=== PATIENT | female | born 1975 | race Caucasian/White ===

== ENCOUNTER 2021-08-26 13:32 | Emergency (ER) | payer OTHER, SELFPAY ==
[2021-08-26 13:50] VITALS: BP 182/102; PULSE 71; RESP 18; TEMP 35.9; O2SAT 98; BMI 32.5
--- NOTE | 2021-08-26 16:50 | ED.GENADULT ---
HPI - General Adult General Chief complaint: General Medical Stated complaint: hbp Time Seen by Provider: 08/26/21 16:50 Source: patient Mode of arrival: ambulatory Limitations: no limitations History of Present Illness HPI narrative: Patient with history of hypertension on lisinopril 20 mg daily complaining of mild headache had some fluttering of eyelids yesterday lasted for few seconds no loss of consciousness no body seizures. patient with history of hypertension for last 1 year used to be on 10 mg of lisinopril increased to 20 mg of lisinopril last month as the blood pressure was on the higher side blood pressure still running high on arrival patient's blood pressure was 182/102 patient under higher stress lately plan to see her PCP next week Related Data Previous Rx's Medication Instructions Recorded amlodipine 5 mg tablet 5 mg PO DAILY #30 tab 08/26/21 hydrochlorothiazide 25 mg tablet 25 mg PO QAM #30 tab 08/26/21 Allergies Allergy/AdvReac Type Severity Reaction Status Date / Time No Known Allergies Allergy Verified 08/26/21 13:50 Review of Systems Review of Systems: Yes all other systems are reviewed and are negative [facility] Social History Social History Advance Directives: No Advance Directives Information Provided: Yes Patient : No Physical Exam Vital Signs: Vital Signs: Last Vital Signs Temp 96.7 F L 08/26/21 13:50 Pulse 71 08/26/21 13:50 Resp 18 08/26/21 13:50 BP 182/102 H 08/26/21 13:50 Pulse Ox 98 08/26/21 13:50 Body Mass Index 32.5 Appearance: Alert. Oriented X3. No acute distress. Eyes: PERRLA, No Nystagmus ENT: Pharynx normal. Oral Mucosa moist Neck: Normal inspection. Neck supple. CVS: Normal heart rate and rhythm. Pulses normal. Respiratory: No respiratory distress. Equal air entry bilateral, no wheezing/rales/rhonchi Abdomen: Soft and nontender. Bowel sounds are present, no mass palpable, no CVA tenderness Skin: Skin warm and dry. Normal skin color. Normal skin turgor. Extremities: No lower extremity edema. No calf tenderness Neuro: Oriented X 3. No motor deficit. No sensory deficit.No cerebellar signs , cranial nerves II-XII intact Medical Decision Making MDM Narrative Medical decision making narrative: Patient with chronic primary hypertension uncontrolled for last 1 month will add amlodipine and hydrochlorothiazide to control blood pressure advised to follow with PCP not sure what cause of fluttering or spasm of the eyelids possible partial seizure patient advised to follow with PCP/neurologist recurrence of similar episodes in future Discharge Plan Discharge Clinical Impression: Hypertension Qualifiers: Hypertension type: primary hypertension Qualified Code(s): I10 - Essential (primary) hypertension Patient Disposition: Home, Self-Care Instructions: Hypertension (ED) Additional Instructions: Decrease salt intake Continue taking your lisinopril 20 mg daily Will start you on hydrochlorothiazide 25 mg daily in the morning along with amlodipine 5 mg daily in the morning Check blood pressure before you take the medication and before go to bed Your blood pressure should be less than 140/90 keep the records of blood pressure reading and follow-up with your PCP as scheduled Prescriptions: New hydrochlorothiazide 25 mg tablet 25 mg PO QAM Qty: 30 RF: 0 amlodipine 5 mg tablet 5 mg PO DAILY Qty: 30 RF: 0
[2021-08-26 17:27] VITALS: BP 168/102; PULSE 67; RESP 18; O2SAT 98
[2021-08-26] MEDS: amLODIPine Besylate 5 MG TABLET PO (17:28)
--- NOTE | 2021-08-26 17:29 | PC.NURSE ---
Per Anwer no ekg needed
== END 2021-08-26 16:55 | disposition home or self-care (01) ==
PROVIDERS: Emergency Provider Internal Medicine; PCP Internal Medicine
DX: I10 Essential (primary) hypertension (principal); R51.9 Headache, unspecified; H52.533 Spasm of accommodation, bilateral; Z79.899 Other long term (current) drug therapy
CPT/HCPCS: 99283

== ENCOUNTER 2021-10-12 14:25 | Outpatient (REF) | payer OTHER, SELFPAY ==
[2021-10-12 15:43] LABS: COVID-19 Test Negative (Negative); IDNOW Serial# 16C4AD1C
== END 2021-10-12 14:26 | disposition home or self-care (01) ==
LOC: HO.LAB 14:25
PROVIDERS: Visit Provider Internal Medicine
DX: Z20.822 Contact with and (suspected) exposure to COVID-19 (principal)
CPT/HCPCS: 87635; C9803

== ENCOUNTER 2021-10-19 13:04 | Outpatient (REF) | payer OTHER, SELFPAY ==
[2021-10-19 13:36] LABS: COVID-19 Test Negative (Negative); IDNOW Serial# 16C4AD1C
== END 2021-10-19 13:05 | disposition home or self-care (01) ==
LOC: HO.LAB 13:04
PROVIDERS: Visit Provider Internal Medicine
DX: Z20.822 Contact with and (suspected) exposure to COVID-19 (principal)
CPT/HCPCS: 87635; C9803

== ENCOUNTER 2022-07-06 12:48 | Emergency (ER) | payer OTHER, SELFPAY ==
--- NOTE | ~2022-07-06 | CT_ITS ---
EXAMINATION: CT HEAD WITHOUT CONTRAST CLINICAL INFORMATION: Headache with new onset shaking COMPARISON: None TECHNIQUE: Imaging was performed from the skull base to vertex without intravenous administration of contrast. This CT examination was performed using dose optimization techniques as appropriate, variously including the following: *Automated exposure control *Adjustment of mA and/or kV according to patient size (this includes techniques or standardized protocols for targeted exams where dose is matched to indication/reason for exam; i.e. extremities or head) *Use of iterative reconstruction technique Total exam dose length product: 603 mGy-cm FINDINGS: No intra or extra-axial fluid collection, hemorrhage, or mass. No ventriculomegaly. No midline shift or herniation. Basal cisterns are patent. Wylie-white matter differentiation is maintained. No territorial encephalomalacia. No significant volume loss. There is no abnormal attenuation within the brain parenchyma. No calvarial fracture or soft tissue abnormality. The mastoid air cells and visualized portions of the paranasal sinuses are well aerated. CT/CT head/brain wo IV con IMPRESSION: 1. No acute intracranial pathology.
[2022-07-06 12:52] VITALS: BP 176/96; PULSE 63; RESP 20; TEMP 37.1; O2SAT 94; BMI 33.1
--- NOTE | 2022-07-06 13:08 | ED.GENADULT ---
HPI - General Adult General Chief complaint: General Medical Stated complaint: ? Stroke Symptoms Time Seen by Provider: 07/06/22 13:07 Source: patient Mode of arrival: ambulatory Limitations: no limitations History of Present Illness HPI narrative: Patient is a 47 year old female presenting to the emergency department today with right hand shaking. Patient states that last night while she was driving she took a wrong turn and got very nervous about and her right hand started shaking. Patient states that it has been shaking on and off since then. Patient states that if she really thinks about it, she can get it to stop. Patient denies any numbness, weakness, dizziness, lightheadedness, abdominal pain, nausea, vomiting, fever, chills, blurry vision, double vision, loss of vision, chest pain, difficulty breathing, shortness of breath, back pain, night sweats, pain with urination, increased urinary frequency, increased urinary urgency, blood in her urine or stool, syncope or a near syncopal episode, recent trauma or falls, bowel incontinence, bladder incontinence, bowel retention, bladder retention, or any other complaints at this time. Onset (ago): hour(s) Location: right and upper extremity Radiation: non-radiation Severity: mild Severity scale (1-10): 2 Relieving factors: other (concentration) Exacerbating factors: none Associated symptoms: denies other symptoms Treatments prior to arrival: none Related Data Previous Rx's Medication Instructions Recorded amlodipine 5 mg tablet 5 mg PO DAILY #30 tabs 08/26/21 hydrochlorothiazide 25 mg tablet 25 mg PO QAM #30 tabs 08/26/21 Allergies Allergy/AdvReac Type Severity Reaction Status Date / Time No Known Allergies Allergy Verified 08/26/21 13:50 Review of Systems Constitutional: Constitutional: Reports no additional constitutional complaints, Denies chills, Denies fever(s) and Denies night sweats Eyes: Eyes: Reports no additional eye complaints, Denies blurry vision, Denies change in vision, Denies diplopia, Denies eye discharge, Denies loss of vision and Denies eye pain ENT: Denies dizziness Cardiovascular: Cardiovascular: Reports no additional cardiovascular complaints, Denies chest pain, Denies lightheadedness, Denies Loss of Consciousness and Denies dyspnea Respiratory: Respiratory: Reports no additional respiratory complaints and Denies dyspnea Gastrointestinal: Gastrointestinal: Reports no additional gastrointestinal complaints, Denies abdominal pain, Denies melena, Denies hematochezia, Denies change in bowel habits and Denies change in stool character Genitourinary: Genitourinary: Denies hematuria, Denies urinary frequency, Denies dysuria, Denies urinary incontinence, Denies urinary hesitancy and Denies urinary urgency Musculoskeletal: Musculoskeletal: Reports no additional musculoskeletal complaints, Denies numbness and Denies tingling Comments: right hand tremor Neurologic: Denies dizziness, Denies loss of vision, Denies numbness and Denies tingling Psychiatric: Psychiatric: Reports no additional psychiatric complaints Endocrine: Endocrine: Reports no additional endocrine complaints Hematologic/Lymphatic: Hematologic/Lymphatic: Reports no additional hematologic/lymphatic complaints Allergic/Immunologic: Allergic/Immunologic: Reports no additional allergic/immunologic complaints [facility] [place] Past Medical History Attestation statement: The following information was validated with the patient. Source: old records reviewed Social History Social History Advance Directives: No Advance Directives Information Provided: Yes Physical Exam ED Vital Signs: Vital Signs - 24 hr 07/06/22 12:52 Temperature 98.7 F Pulse Rate 63 Respiratory Rate 20 Blood Pressure 176/96 H Pulse Oximetry 94 Oxygen Delivery Method Room Air BMI result Body Mass Index 33.1 Const General: cooperative, no acute distress, alert and awake Nutritional Appearance: well nourished Orientation/consciousness: patient oriented x3 Limitations: no limitations HENMT Head: Yes normal to inspection and Yes atraumatic Ears: hearing grossly normal bilaterally and external ears normal General nose exam: Normal external nose present, no nasal discharge noted and no epistaxis Face and sinus: Yes normal facial exam, No abrasion and No laceration Mouth: Normal oral and palatal mucosa present, no drooling and no muffled voice Eyes General: appearance normal, both eyes and all related structures Periorbital: periorbital findings normal Eyelids: Yes eyelids normal Conjunctivae: conjunctivae normal Pupils: Equal, round and reactive pupils present EOM: EOMs intact bilaterally Neck Neck: Yes normal visual inspection, Yes full ROM and Yes no lymphadenopathy Chest Chest palpation & inspection: normal inspection of the chest Resp Effort & Inspection: normal respiratory effort and able to speak in complete sentences Auscultation: clear to auscultation bilaterally Cardio Rate: regular rate Rhythm: regular rhythm GI Inspection: Yes normal to inspection Neuro General: patient oriented x3 and moves all extremities Cranial nerves: Yes Equal, round and reactive pupils present Cognition (Neuro): normal cognition Motor exam (neuro): 5/5 motor strength present throughout Sensory Exam: Normal double simultaneous stimulation for sensation Coordination: [id number] test normal Extrem General: Yes normal to inspection, Yes full ROM and Yes capillary refill normal Psych Appearance: grossly normal Mental Status: mental status grossly normal Affect: normal affect Attitude: cooperative Thought process: Normal thought process present Thought content: Normal thought content present Insight: Good insight present (Psych) NIH Stroke Scale Internal: Initial- Upon Arrival Time: 13:08 Level of Consciousness: Alert Level of Consciousness Questions: Answers both questions correctly Level of Consciousness Commands: Performs both tasks correctly Best Gaze: Normal Visual: No visual loss Facial Palsy: Normal Motor Arm (Right): No drift Motor Arm (Left): No drift Motor Leg (Right): No drift Motor Leg (Left): No drift Limb Ataxia: Absent Sensory: Normal Best Language: No aphasia Dysarthia: Normal Extinction and Inattention: No abnormality Score: 0 Medical Decision Making MDM Narrative Medical decision making narrative: Patient is a 47 year old female presenting to the emergency department today with a resolved right hand tremor. Patient's physical exam was unremarkable, including no active tremor. Patient's blood work was unremarkable. Patient's head CT showed no acute process. Patient's clinical presentation at this time is most consistent with anxiety. Patient's presentation is not consistent with a stroke, benign tremor, or an essential tremor. I explained my physical exam findings as well as all test results to the patient. I answered all questions asked by the patient. I stressed the importance of the patient taking her medication as prescribed. I stressed the importance of the patient following up with her primary care provider. I stressed the importance of the patient returning to the emergency department immediately if her symptoms were to worsen or if she were to develop any dizziness, shortness of breath, difficulty breathing, chest pain, blurry vision, loss of vision, nausea, vomiting, abdominal pain, fever, chills, back pain, or any other complaints. Patient verbalized agreement and understanding with this treatment plan and discharge. Medical Records Medical records reviewed: Yes I reviewed the patient's medical records. Lab Data Lab results reviewed: Yes I reviewed the patient's lab results. Result diagrams: 07/06/22 13:51 07/06/22 13:51 Labs: Lab Results 07/06/22 07/06/22 Range/Units 13:51 13:51 WBC 8.0 (4.8-10.8) X10*3/uL RBC 4.11 L (4.20-5.50) X10*6/uL Hgb 12.5 (12.0-16.0) g/dl Hct 37.7 (37.0-47.0) % MCV 91.7 (80.0-98.0) fL MCH 30.4 (27.0-33.0) pg MCHC 33.2 (31.0-35.0) g/dl RDW 12.8 (11.0-16.0) % Plt Count 331 (160-400) X10*3/uL MPV 8.6 L (9.4-12.3) fL Immature Gran % (Auto) 0.1 (0.0-0.4) % Neut % (Auto) 52.5 (45-73) % Lymph % (Auto) 33.1 (20-40) % [place] % (Auto) 8.1 (2-11) % Eos % (Auto) 5.4 H (0-4) % Baso % (Auto) 0.8 (0-2) % Lymph # (Auto) 2.6 (1.2-4.9) X10*3/uL [place] # (Auto) 0.7 (0.1-1.2) X10*3/uL Eos # (Auto) 0.4 (0.0-0.4) X10*3/uL Baso # (Auto) 0.1 (0.0-0.2) X10*3/uL Abs Immat Gran (auto) 0.01 (0.00-0.03) X10*3/uL Absolute Neuts (auto) 4.2 (2.0-8.3) x10*3/uL Absolute Nucleated RBC 0.000 (0.0-0.012) X10*3/uL Nucleated RBC % (auto) 0.0 (0.0-0.2) /100WBC Sodium 140 (135-145) mmol/L Potassium 4.2 (3.3-5.1) mmol/L Chloride 105 (96-108) mmol/L Carbon Dioxide 26 (22-29) mmol/L Anion Gap 13 (12-20) BUN 16 (9-16) mg/dL Creatinine 0.80 (0.5-1.4) mg/dL Estim Creat Clear Calc 94.4 Estimated GFR > 60 Random Glucose 93 (60-115) mg/dL Calcium 9.2 (8.4-10.2) mg/dL Magnesium 2.2 (1.6-2.6) mg/dL Total Bilirubin 0.4 (0.0-1.0) mg/dL AST 16 (5-31) U/L ALT 15 (0-31) U/L Alkaline Phosphatase 96 (39-117) U/L Total Protein 7.3 (6.5-8.0) g/dL Albumin 4.2 (3.5-5.0) g/dL Imaging Data CT scan - head: Attestation: I personally reviewed and interpreted this imaging study as follows: My impression: No acute process. Radiologist's impression: EXAMINATION: CT HEAD WITHOUT CONTRAST CLINICAL INFORMATION: Headache with new onset shaking? COMPARISON: None TECHNIQUE: Imaging was performed from the skull base to vertex without intravenous administration of contrast. This CT examination was performed using dose optimization techniques as appropriate, variously including the following: *Automated exposure control *Adjustment of mA and/or kV according to patient size (this includes techniques or standardized protocols for targeted exams where dose is matched to indication/reason for exam; i.e. extremities or head) *Use of iterative reconstruction technique Total exam dose length product: 603 mGy-cm FINDINGS: No intra or extra-axial fluid collection, hemorrhage, or mass. No ventriculomegaly. No midline shift or herniation. Basal cisterns are patent. Wylie-white matter differentiation is maintained. No territorial encephalomalacia. ?No significant volume loss. There is no abnormal attenuation within the brain parenchyma. No calvarial fracture or soft tissue abnormality. ?The mastoid air cells and visualized portions of the paranasal sinuses are well aerated. CT/CT head/brain wo IV con IMPRESSION: 1. No acute intracranial pathology. Dictated By: Rio Nina Signed By: Electronically signed by Rio Nina 07/06/22 1262 Discharge Plan Discharge Clinical Impression: Anxiety Patient Disposition: Home, Self-Care Instructions: Anxiety (ED) Additional Instructions: Follow up with your primary care provider and a neurologist. Return to the emergency department immediately if your symptoms worsen or if you develop any dizziness, shortness of breath, difficulty breathing, chest pain, blurry vision, loss of vision, nausea, vomiting, abdominal pain, fever, chills, back pain, or any other complaints. Prescriptions: No Action hydrochlorothiazide 25 mg tablet 25 mg PO QAM Qty: 30 0RF amlodipine 5 mg tablet 5 mg PO DAILY Qty: 30 0RF Referrals: [facility] [place] Neuro/Sleep [Provider Group] Andreea Hernandez MD [Primary Care Provider] - Print Language: Tuvaluan
[2022-07-06 13:56] LABS: MANUAL DIFF FLAG NO
[2022-07-06 13:57] LABS: Basophils Absolute Auto 0.1 X10*3/uL (0.0-0.2); Basophils Percent Auto 0.8 % (0-2); Eosinophils Absolute Auto 0.4 X10*3/uL (0.0-0.4); Eosinophils Percent Auto 5.4 % (0-4); Hematocrit 37.7 % (37.0-47.0); Hemoglobin 12.5 g/dl (12.0-16.0); Imm Gran Abs Auto 0.01 X10*3/uL (0.00-0.03); Imm Gran Pct Auto 0.1 % (0.0-0.4); Lymphocytes Absolute Auto 2.6 X10*3/uL (1.2-4.9); Lymphocytes Percent Auto 33.1 % (20-40); Mean Corpuscular HGB Conc 33.2 g/dl (31.0-35.0); Mean Corpuscular Hemoglobin 30.4 pg (27.0-33.0); Mean Corpuscular Volume 91.7 fL (80.0-98.0); Mean Platelet Volume 8.6 fL (9.4-12.3); Monocytes Absolute Auto 0.7 X10*3/uL (0.1-1.2); Monocytes Percent Auto 8.1 % (2-11); Neutrophils Absolute Auto 4.2 x10*3/uL (2.0-8.3); Neutrophils Percent Auto 52.5 % (45-73); Platelet Count 331 X10*3/uL (160-400); Red Blood Count 4.11 X10*6/uL (4.20-5.50); Red Cell Distribution Width 12.8 % (11.0-16.0)
[2022-07-06 14:15] LABS: Alanine Aminotransferase 15 U/L (0-31); Albumin Level 4.2 g/dL (3.5-5.0); Alkaline Phosphatase 96 U/L (39-117); Anion Gap 13 (12-20); Aspartate Amino Transferase 16 U/L (5-31); Bilirubin Total 0.4 mg/dL (0.0-1.0); Blood Urea Nitrogen 16 mg/dL (9-16); Calcium 9.2 mg/dL (8.4-10.2); Carbon Dioxide 26 mmol/L (22-29); Chloride 105 mmol/L (96-108); Creatinine Clr Calc Pharmacy 94.4; Estimated Glomerular Filt Rate > 60; Glucose Random 93 mg/dL (60-115); Magnesium 2.2 mg/dL (1.6-2.6); Potassium 4.2 mmol/L (3.3-5.1); Sodium 140 mmol/L (135-145); Total Protein 7.3 g/dL (6.5-8.0)
== END 2022-07-06 15:42 | disposition home or self-care (01) ==
PROVIDERS: Physician Assistant Medical; Emergency Provider Emergency Medicine Emergency Medical Services; PCP Internal Medicine
DX: F41.9 Anxiety disorder, unspecified (principal); R25.1 Tremor, unspecified
CPT/HCPCS: 36415; 70450; 80053; 83735; 85025; 99282; 99284

== ENCOUNTER 2023-02-10 05:50 | Emergency (ER) | payer OTHER, SELFPAY ==
--- NOTE | ~2023-02-10 | US_ITS ---
EXAMINATION: US ABDOMEN COMPLETE CLINICAL INFORMATION: Abdominal pain. COMPARISON: Previous CT of the abdomen and pelvis December 2018 TECHNIQUE: Real-time imaging of the abdominal viscera. FINDINGS: PANCREAS: Normal. ABDOMINAL AORTA: The proximal, mid, and distal segments are normal in caliber. INFERIOR VENA CAVA: Visualized portions are normal. LIVER: Liver echotexture may be slightly increased. The liver is normal in size and contour. No focal hepatic lesion. There is no intrahepatic biliary duct dilatation seen. GALLBLADDER: Normal. The gallbladder is physiologically distended without evidence of stones, sludge, polyps, wall thickening or pericholecystic fluid. COMMON BILE DUCT: Normal in caliber measuring 0.3 cm in diameter. RIGHT KIDNEY: Normal. No hydronephrosis. No renal calculi or focal parenchymal lesions. The kidney measures 12.6 cm in maximum dimension. LEFT KIDNEY: Normal. No hydronephrosis. No renal calculi or focal parenchymal lesions. The kidney measures 12 cm in maximum dimension. SPLEEN: Normal. The spleen measures 9 cm in maximum dimension. FREE FLUID: None. US/US abdomen complete IMPRESSION: Slightly echogenic liver probably representing mild fatty infiltration. Normal-appearing gallbladder.
--- NOTE | ~2023-02-10 | XR_ITS ---
EXAMINATION: XR RIBS, RIGHT CLINICAL INFORMATION: Right lower rib pain COMPARISON: Previous chest x-ray from 2014 TECHNIQUE: 3 views of the right ribs and one view of the chest were obtained. FINDINGS: Lungs are clear. No consolidation, pneumothorax, or pleural effusion. The cardiomediastinal silhouette and pulmonary vasculature are normal. Degenerative changes of the spine. Ribs are intact. No fractures are identified. XR/XR ribs RT min 3V w CXR1V IMPRESSION: No evidence for acute disease in the chest or rib fracture.
[2023-02-10 06:00] VITALS: BP 156/91; PULSE 69; RESP 16; TEMP 36.3; O2SAT 98; BMI 33.3
--- OUTSIDE RECORDS SUMMARY | 2023-02-10 06:34 | XMS_ITS | Continuity of Care Document ---
Author Name Unknown Organization [facility] ter Address [address] [place] [id number] Care Team Providers Care Certified Family Mediator Name Role Phone Seble Yoon Primary Care Physician [phone] Encounter [facility] [place] Date(s): 07/26/22 - 07/30/[address] [address]- Encounter Diagnosis Seizure(Final) - 07/27/22 Headache(Final) - 07/27/22 Aphasia(Final) - 07/27/22 Tremor(Final) - 07/27/22 Discharge Disposition: A-D/C Home Attending Physician: Armando Girard MD Admitting Physician: Tk Moreno MD Referring Physician: Not on Staff, Referring MD Allergies, Adverse Reactions, Alerts No Known Allergies Immunizations Not Given Vaccine Date Status Refusal Reason influenza virus vaccine, inactivated 1 07/28/22 No t Given Parent Or Guardian Refuses 1Result Comment: already received per pt Medications Acetaminophen Tablet 650 mg, Tablet, By Mouth, Every 4 hours, PRN for Pain , Mild, Temperature Greater than 100.5, Routine, 07/27/22 2:19:00 EDT Start Date: 07/27/22 Stop Date: 07/31/22 Status: Discontinued lisinopril 20 mg oral tablet 20 mg, Tablet, By Mouth, 07/30/22 9:00:00 EDT Start Date: 07/30/22 Stop Date: 07/30/22 Status: Completed lisinopril 20 mg oral tablet 20 mg, 1, tablet, By Mouth, Daily, # 30 tablet, Refills 0, Maintenance, 07/27/22 15:20:00 EDT, Partial fill upon patient request if the prescription is for a schedule II opioid drug. Start Date: 07/27/22 Status: Ordered Paxlovid 150 mg-100 mg (150 mg-100 mg Dose) oral tablet See Instructions, Take 300mg mg nirmatrelvir (two 150 mg tablets) and 100 mg ritonavir (one 100 mg tablet), taking both tablets together, orally twice daily for 5 days, # 30 tablet, 0 Refills, Maintenance, 07/30/22 15:29:00 EDT, [facility] #... Start Date: 07/30/22 Status: Ordered Problem List Condition Confirmation Course Effective Dates Status Health St atus Informant COVID-19 1 Confirmed 07/30/22 Active Obese class I Confirmed Active 1Problem added by Discern Expert Results Radiology Reports * Exam Date Time Procedure Performing Provider Status 07/27/22 1:00 AM Chest Portable Johann Bruno; Carlos (Verified) Notes: (Chest Portable) Reason For Exam: Stroke;Other: RESULT: Chest Portable Chest Portable HX OF PRESENT ILLNESS: LKW 2354, presents with left sided deficits and altered speech.; Reason: Stroke; Clinical Question(s): CHF / CHF COMPARISON: None. FINDINGS: LINES AND TUBES: None. LUNGS AND PLEURA: Clear lungs. Normal pulmonary vascularity. No pleural effusion. No pneumothorax. HEART, MEDIASTINUM AND RANI: Heart is normal in size. Normal mediastinal and hilar contour. BONES AND SOFT TISSUES: No acute abnormality. IMPRESSION: No evidence of acute abnormality. WSN: [id number] Ordering Physician: Julio Wills Dictated By: Jose Webb MD Dictated Date/Time: 07/27/22 8:05 am Reviewed By: Jose Webb MD Signed By: Jose Webb MD Signed Date/Time: 07/27/22 8:05 am Transcribed By: DENI Transcribed Date/Time: 07/27/22 8:04 am Vital Signs Most recent to oldest [Reference Range]: 1 2 3 Height 165 cm (07/30/22 8:38 AM) 165 cm (07/29/22 3:37 PM) 165 cm (07/29/22 11:49 AM) Weight 89.8 kg (07/27/22 3:00 PM) Oxygen Saturation [94-100 %] 92 % *L* (07/30/22 4:00 PM) 94 % (07/30/22 11:00 AM) 97 % (07/30/22 8:38 AM) Pulse Rate [55-90 bpm] 92 bpm *H* (07/30/22 4:00 PM) 90 bpm (07/30/22 11:00 AM) 86 bpm (07/30/22 8:38 AM) Body Mass Index [18.5-24.99 kg/m2] 32.98 kg/m2 *>HHI* (07/27/22 3:00 PM) Blood Pressure [90-138/55-84 mm Hg] 139/79mm Hg *H* (07/30/22 4:00 PM) 112/70mm Hg (07/30/22 11:00 AM) 142/89mm Hg *H* (07/30/22 9:26 AM) Respiratory Rate [16-30 br/min] 16 br/min (07/30/22 4:00 PM) 17 br/min (07/30/22 12:04 PM) 17 br/min (07/30/22 11:00 AM) Temperature [96.8-100.4 DegF] 98.6 DegF (07/30/22 4:00 PM) 96.4 DegF *L* (07/30/22 11:00 AM) 97.9 DegF (07/30/22 8:38 AM) Liters per Minute 0 L/min (07/27/22 3:21 PM) Mode of Delivery (Oxygen) Room air (07/30/22 4:00 PM) Room air (07/30/22 11:00 AM) Room air (07/30/22 8:38 AM) Blood pressure sites Arm, right (07/30/22 4:00 PM) Arm, right (07/30/22 11:00 AM) Arm, right (07/30/22 8:38 AM) Temperature Route Temporal (07/30/22 4:00 PM) Temporal (07/30/22 11:00 AM) Temporal (07/30/22 8:38 AM) Dry Weight 89.8 kg (07/27/22 3:00 PM) Portable XR Chest Views * [facility] , CIS S: TRANSCRIBE Jose Webb MD S: VERIFY Event Display: Result: Authored Date: [id number] Chest Portable HX OF PRESENT ILLNESS: LKW 2354, presents with left sided deficits and altered speech.; Reason: Stroke; Clinical Question(s): CHF / CHF COMPARISON: None. FINDINGS: LINES AND TUBES: None. LUNGS AND PLEURA: Clear lungs. Normal pulmonary vascularity. No pleural effusion. No pneumothorax. HEART, MEDIASTINUM AND RANI: Heart is normal in size. Normal mediastinal and hilar contour. BONES AND SOFT TISSUES: No acute abnormality. IMPRESSION: No evidence of acute abnormality. WSN: [id number] Ordering Physician: Julio Wills Dictated By: Jose Webb MD Dictated Date/Time: 07/27/22 8:05 am Reviewed By: Jose Webb MD Signed By: Jose Webb MD Signed Date/Time: 07/27/22 8:05 am Transcribed By: DENI Transcribed Date/Time: 07/27/22 8:04 am Patient Care team information Personnel Name: Seble Yoon Address: Address: [address] [place] [id number]
[2023-02-10 06:48] LABS: Hematocrit 38.3 % (37.0-47.0); Hemoglobin 12.4 g/dl (12.0-16.0); Mean Corpuscular HGB Conc 32.4 g/dl (31.0-35.0); Mean Corpuscular Hemoglobin 30.1 pg (27.0-33.0); Mean Platelet Volume 8.8 fL (9.4-12.3); Platelet Count 291 X10*3/uL (160-400); Red Blood Count 4.12 X10*6/uL (4.20-5.50); Red Cell Distribution Width 12.7 % (11.0-16.0); White Blood Count 7.5 X10*3/uL (4.8-10.8)
--- NOTE | 2023-02-10 07:04 | ED_ITS ---
HPI - Abdominal Pain General Chief Complaint: Abdominal Pain Stated Complaint: ?gall bladder stones Time Seen by Provider: 02/10/23 06:38 Source: patient Mode of arrival: ambulatory Limitations: no limitations History of Present Illness HPI narrative: Patient is a 47 yo female with a PMH of HT. One week ago, 02/03 patient woke up from sleep with mid back pain. She states she had been fishing a few days prior, and that he pain may be muscular. The next day 02/04. her back pain had resolved, but she developed RUQ and epigastric abdominal pain. She states she feels cysts in her RUQ. Four days ago, 02/06 patient states she also developed nausea. She states her symptoms have worsened over the past week rating her pain an 8/10. She states she has not taken anything for pain. Her pain increases when she is sitting or leaning forward. She has not had a fever, headache, diarrhea, difficulty with stooling, emesis, or continued back pain. She has not had her period for two months, but is not sexually active. MD elicited complaint: abdominal pain Pertinent past history: none Onset (ago): week(s) (1) Location: epigastric and RUQ Severity: mild Radiation: none Migration to: no migration Exacerbating factors: other (leaning forward or sitting) Associated symptoms: nausea Related Data Previous Rx's Medication Instructions Recorded amlodipine 5 mg tablet 5 mg PO DAILY #30 tabs 08/26/21 hydrochlorothiazide 25 mg tablet 25 mg PO QAM #30 tabs 08/26/21 cyclobenzaprine 10 mg tablet 10 mg PO Q8H Muscular skeletal 02/10/23 pain #14 tabs ibuprofen 600 mg tablet 600 mg PO Q6H PRN fever #14 tabs 02/10/23 Allergies Allergy/AdvReac Type Severity Reaction Status Date / Time No Known Allergies Allergy Verified 08/26/21 13:50 Review of Systems Review of Systems Constitutional : No Weight loss, No Fever, No Chills, No Night Sweats, No Fatigue, No Malaise ENT/Mouth : , No Nasal Congestion, No Sinus Pain, No Hoarseness, No sore throat Eyes: , No Vision Changes Cardiovascular : No Chest Pain, No SOB, No Dyspnea on Exertion, No Edema, No Palpitations Respiratory : No Cough, No Wheezing, No Dyspnea Gastrointestinal : Patient endorses RUQ and epigastric pain and nausea, No Vomiting, No Diarrhea, No Constipation, No Hematochezia, No Melena, last bowel movement was yesterday 02/09 Genitourinary : No Dysuria, No Urinary Frequency, , No Urinary Incontinence, No Urgency, No Flank Pain, No Urinary Flow Changes, No Hesitancy Musculoskeletal : Midback pain for one day at onset, since resolved No joint pain, No ,myalgias, No Joint Swelling Skin : No Skin Lesions, No rash Neuro : No Weakness, No Numbness, No Paresthesias, No Loss of Consciousness, No Dizziness, No Headache, Heme/Lymph No Lymphadenopathy Endocrine : No Polyuria Yes all other systems are reviewed and are negative [facility] Past Medical History Attestation statement: The following information was validated with the patient. Source: old records reviewed and nursing notes reviewed Social History Social History Alcohol intake: never Smoked in Last 30 Days: No Use of substances other than those prescribed or required for medical reasons: No Advance Directives: No Advance Directives Information Provided: No Patient : No Physical Exam ED Vital Signs: Vital Signs - 24 hr 02/10/23 06:00 Temperature 97.4 F Pulse Rate 69 Respiratory Rate 16 Blood Pressure 156/91 H Pulse Oximetry 98 Oxygen Delivery Method Room Air BMI result Body Mass Index 33.3 Vital signs have been reviewed and all within normal limits Appearance: Alert. Oriented X3. No acute distress. Head: Normal external exam. Normocephalic. Eyes: PERRLA. Conjunctiva and sclera normal. Eyelids normal. Neck: Normal inspection. CVS: Normal heart rate and rhythm. Heart sound normal. No murmurs noted. Pulses normal throughout. Respiratory: No respiratory distress. Painless inspiration. Breath sounds normal. No wheezes/rales/rhonchi noted. Chest to right lateral lower anterior chest wall rib cage patient has mild tenderness palpation. No rashes are noted. No crepitus is noted. Not consistent with flail chest. No signs of trauma not ed. No accessory muscle usage noted or decreased air movement noted. Abdomen: Tender at the RUQ and epigastric areas. Soft and no guarding. No rigidity. Bowel sounds normal in all 4 quadrants. No distention noted. No organomegaly noted. No visible injury noted. No rebound tenderness. Back: No CVA tenderness. Skin: Skin warm and dry. Normal skin color. Normal skin turgor. No rashes/lesi ons/lacerations noted. Extremities: Extremities exhibit normal range of motion. Extremities nontender. Neuro: Oriented X 3. Course Reevaluation(s) Reevaluation #1: All labs reviewed and labs within normal limits. Patient negative for . UA within normal limits no evidence of UTI. Ultrasound negative for any acute processes. Chest x-ray /rib within normal limits no acute processes n oted. Patient will be given Motrin and reports improving her pain. She does have point tenderness to the right lateral lower ribcage. Therefore most likely musculoskeletal. Will DC home with muscle relaxants and Motrin instructions to follow-up with primary care provider and to return if any new or worsening symptoms. Patient understands agrees with this plan. Time: 10:09 Medical Decision Making Medical Decision Making [facility] Narrative: This patient presents with abdominal pain, which is most likely referred pain from a rib/muscular injury, although it is possibly acute, uncomplicated biliary colic. We ordered an abdominal US as well as a CBC and CMP to r/o an acute gall bladder, pancreatic or renal etiology which was normal. We plan to also have an US of the right rib performed to r/o fracture. Patient is afebrile and not jaundiced or altered, lowering my suspicion for cholangitis. Patient had a bowel movement yesterday 02/10 and she does not have RLQ pain so low suspicion for bowel obstruction, or atypical appendicitis. Presentation not consistent with other acute, emergent causes of abdominal pain at this time. Plan: labs, LFTs, lipase, abdominal US, rib US pain control, supportive care, serial reassessment Lab Data [facility] Lab Attestation statement: I reviewed the patient's lab results. 02/10/23 06:42 02/10/23 06:42 Labs: Lab Results 02/10/23 02/10/23 02/10/23 Range/Units 06:42 06:42 08:18 WBC 7.5 (4.8-10.8) X10*3/uL RBC 4.12 L (4.20-5.50) X10*6/uL Hgb 12.4 (12.0-16.0) g/dl Hct 38.3 (37.0-47.0) % MCV 93.0 (80.0-98.0) fL MCH 30.1 (27.0-33.0) pg MCHC 32.4 (31.0-35.0) g/dl RDW 12.7 (11.0-16.0) % Plt Count 291 (160-400) X10*3/uL MPV 8.8 L (9.4-12.3) fL Absolute Nucleated RBC 0.000 (0.0-0.012) X10*3/uL Nucleated RBC % (auto) 0.0 (0.0-0.2) /100WBC Sodium 143 (135-145) mmol/L Potassium 4.5 (3.3-5.1) mmol/L Chloride 108 (96-108) mmol/L Carbon Dioxide 30 H (22-29) mmol/L Anion Gap 10 L (12-20) BUN 17 H (9-16) mg/dL Creatinine 0.81 (0.5-1.4) mg/dL Estim Creat Clear Calc 93.4 Estimated GFR > 60 Random Glucose 93 (60-115) mg/dL Calcium 9.2 (8.4-10.2) mg/dL Magnesium 2.1 (1.6-2.6) mg/dL Total Bilirubin 0.4 (0.0-1.0) mg/dL AST 16 (5-31) U/L ALT 16 (0-31) U/L Alkaline Phosphatase 97 (39-117) U/L Total Protein 6.6 (6.5-8.0) g/dL Albumin 3.8 (3.5-5.0) g/dL Lipase 14 (8-78) U/L Beta HCG, Quant < 2 mIU/mL Urine Color Yellow Urine Appearance Clear Urine pH 8.0 (5.0-9.0) Ur Specific [place] 1.015 (1.005-1.025) Urine Protein Negative (Neg-Trace) mg/dL Urine Glucose (UA) Negative (Negative) mg/dL Urine Ketones Negative (Negative) mg/dL Urine Blood Negative (Negative) Urine Nitrite Negative (Negative) Ur Leukocyte Esterase Negative (Negative) Independent Interpretation I performed an independent interpretation of an: Plain X-Ray (X-ray of right ribs and chest reviewed by myself group 0 radiology report within normal limits no acute finding) and Ultrasound (Ultrasound reviewed by myself agreeable radiology report) Radiology Impression Discussion of test interpretation with radiology: I have reviewed the radiologist's reading. Radiologist Impression: EXAMINATION: XR RIBS, RIGHT CLINICAL INFORMATION: Right lower rib pain COMPARISON: Previous chest x-ray from 2013 TECHNIQUE: 3 views of the right ribs and one view of the chest were obtained. FINDINGS: Lungs are clear. No consolidation, pneumothorax, or pleural effusion. The cardiomediastinal silhouette and pulmonary vasculature are normal. Degenerative changes of the spine. Ribs are intact. No fractures are identified. XR/XR ribs RT min 3V w CXR1V IMPRESSION: No evidence for acute disease in the chest or rib fracture. EXAMINATION: US ABDOMEN COMPLETE CLINICAL INFORMATION: Abdominal pain. COMPARISON: Previous CT of the abdomen and pelvis December 2018 TECHNIQUE: Real-time imaging of the abdominal viscera. FINDINGS: PANCREAS: Normal. ABDOMINAL AORTA: The proximal, mid, and distal segments are normal in caliber. INFERIOR VENA CAVA: Visualized portions are normal. LIVER: Liver echotexture may be slightly increased. The liver is normal in size and contour. No focal hepatic lesion. There is no intrahepatic biliary duct dilatation seen. GALLBLADDER: Normal. The gallbladder is physiologically distended without evidence of stones, sludge, polyps, wall thickening or pericholecystic fluid. COMMON BILE DUCT: Normal in caliber measuring 0.3 cm in diameter. RIGHT KIDNEY: Normal. No hydronephrosis. No renal calculi or focal parenchymal lesions. The kidney measures 12.6 cm in maximum dimension. LEFT KIDNEY: Normal. No hydronephrosis. No renal calculi or focal parenchymal lesions. The kidney measures 12 cm in maximum dimension. SPLEEN: Normal. The spleen measures 9 cm in maximum dimension. FREE FLUID: None. US/US abdomen complete IMPRESSION: Slightly echogenic liver probably representing mild fatty infiltration. Normal-appearing gallbladder. External Record Review External record reviewed: Inpatient record, Office record, Outpatient record, Prior outpatient labs, Prior outpatient radiology, Primary care record and Outside ED record Prescription Management I considered prescription management with: Pain Medication (Motrin and Flexeril) Chronic Conditions Patient?s care impacted by: Hypertension Medications Administered Discontinued Medications Generic Name Dose Route Start Last Admin Trade Name Freq PRN Reason Stop Dose Admin Cyclobenzaprine HCl 10 mg 02/10/23 09:10 02/10/23 09:47 Cyclobenzaprine Hcl 10 Mg Tablet PO 02/10/23 09:11 Not Given ONCE ONE Ibuprofen 800 mg 02/10/23 09:10 02/10/23 09:46 Ibuprofen 800 Mg Tablet PO 02/10/23 09:11 800 mg ONCE ONE Administration Discharge Plan Discharge Clinical Impression: Pain on movement of skeletal muscle, Rib pain on right side Patient Disposition: Home, Self-Care Instructions: Musculoskeletal Pain (ED) Prescriptions: New ibuprofen 600 mg tablet 600 mg PO Q6H PRN (Reason: fever) Qty: 14 0RF cyclobenzaprine 10 mg tablet 10 mg PO Q8H Qty: 14 0RF No Action hydrochlorothiazide 25 mg tablet 25 mg PO QAM Qty: 30 0RF amlodipine 5 mg tablet 5 mg PO DAILY Qty: 30 0RF Referrals: Alise Dooley MD [Primary Care Provider] - 2 days
[2023-02-10 07:05] LABS: Alanine Aminotransferase 16 U/L (0-31); Albumin Level 3.8 g/dL (3.5-5.0); Alkaline Phosphatase 97 U/L (39-117); Anion Gap 10 (12-20); Aspartate Amino Transferase 16 U/L (5-31); Bilirubin Total 0.4 mg/dL (0.0-1.0); Blood Urea Nitrogen 17 mg/dL (9-16); Calcium 9.2 mg/dL (8.4-10.2); Carbon Dioxide 30 mmol/L (22-29); Chloride 108 mmol/L (96-108); Creatinine Clr Calc Pharmacy 93.4; Estimated Glomerular Filt Rate > 60; Glucose Random 93 mg/dL (60-115); Lipase 14 U/L (8-78); Potassium 4.5 mmol/L (3.3-5.1); Sodium 143 mmol/L (135-145); Total Protein 6.6 g/dL (6.5-8.0)
[2023-02-10 07:25] LABS: Magnesium 2.1 mg/dL (1.6-2.6)
[2023-02-10 07:33] LABS: HCG Quantitative < 2 mIU/mL
[2023-02-10 08:26] LABS: Appearance Urine Clear; Color Urine Yellow; Glucose Urine UA Negative (Negative); Leukocyte Esterase Urine Negative (Negative); Nitrite Urine Negative (Negative); Specific Gravity - Urine 1.015 (1.005-1.025); Urine Blood Negative (Negative); Urine Ketones Negative (Negative); Urine Protein Negative (Neg-Trace)
[2023-02-10] MEDS: Ibuprofen 800 MG TABLET PO (09:46)
[2023-02-10 10:08] VITALS: BP 140/87; PULSE 64; RESP 16; O2SAT 98
== END 2023-02-10 10:13 | disposition home or self-care (01) ==
PROVIDERS: Emergency Provider Emergency Medicine Emergency Medical Services; PCP Internal Medicine
DX: M79.18 Myalgia, other site (principal); R07.81 Pleurodynia; R10.9 Unspecified abdominal pain; Z79.899 Other long term (current) drug therapy
CPT/HCPCS: 36415; 71101; 76700; 80053; 81003; 83690; 83735; 84702; 85027; 99284

== ENCOUNTER 2023-04-28 00:26 | Emergency (ER) | payer OTHER, SELFPAY ==
[2023-04-28 00:38] VITALS: BP 195/111; PULSE 75; RESP 18; TEMP 36.8; O2SAT 98; BMI 33.6
== END 2023-04-28 03:03 | disposition left against medical advice (07) ==
PROVIDERS: Emergency Provider Emergency Medicine
DX: Z20.89 Contact with and (suspected) exposure to other communicable diseases (principal)
CPT/HCPCS: 99281

== ENCOUNTER 2023-08-20 08:32 | Emergency (ER) | payer OTHER, SELFPAY ==
--- NOTE | ~2023-08-20 | CT_ITS ---
EXAMINATION: CT ABDOMEN AND PELVIS WITHOUT CONTRAST CLINICAL INFORMATION: Right flank pain COMPARISON: Ultrasound abdomen complete 02/10/2023 TECHNIQUE: Multidetector volumetric imaging was performed from the superior aspect of the liver through the pubic symphysis. Sagittal and coronal reformatted images were obtained on the technologist's workstation. This CT examination was performed using dose optimization techniques as appropriate, variously including the following: *Automated exposure control *Adjustment of mA and/or kV according to patient size (this includes techniques or standardized protocols for targeted exams where dose is matched to indication/reason for exam; i.e. extremities or head) *Use of iterative reconstruction technique DLP: 643 mGy-cm FINDINGS: LUNG BASES: There is platelike atelectasis left lung base. Heart size is normal. The small sliding hiatal hernia LIVER, GALLBLADDER, AND BILIARY TREE: The liver is normal in size, shape, and attenuation. No focal hepatic lesion or biliary ductal dilatation is present. The gallbladder is unremarkable with no evidence of radiopaque gallstones, gallbladder wall thickening, or obvious pericholecystic inflammatory changes. PANCREAS: Unremarkable. SPLEEN: Unremarkable. ADRENAL GLANDS: Unremarkable. KIDNEYS AND URETERS: The kidneys are normal in size, shape, and attenuation. No hydronephrosis, hydroureter, or calculi seen. No perinephric stranding. BLADDER: Unremarkable. GASTROINTESTINAL TRACT: The appendix is visualized and appears normal caliber. There is scattered stool throughout the colon without distention or mural thickening. No pericolic fat stranding. ABDOMINAL WALL: Small umbilical hernia containing fat is noted. LYMPH NODES: Normal. VASCULAR: Unremarkable. PELVIC VISCERA: The uterus is midline with the right ovarian cyst measuring 3.4 x 2.5 cm OSSEOUS STRUCTURES: No aggressive lytic or sclerotic process seen CT/CT abdomen pelvis wo IV con IMPRESSION: 1. No acute intra-abdominal process seen. 2. Mild constipation. Normal appendix. 3. No radiopaque urolith or hydroureteronephrosis. Fleischner guidelines were followed.
[2023-08-20 08:41] VITALS: BP 144/91; PULSE 73; RESP 16; TEMP 36.4; O2SAT 97; BMI 33.6
[2023-08-20 09:08] LABS: MANUAL DIFF FLAG NO
[2023-08-20 09:11] LABS: Basophils Absolute Auto 0.1 X10*3/uL (0.0-0.2); Basophils Percent Auto 0.6 % (0-2); Eosinophils Absolute Auto 0.4 X10*3/uL (0.0-0.4); Eosinophils Percent Auto 3.8 % (0-4); Hematocrit 38.6 % (37.0-47.0); Hemoglobin 12.7 g/dl (12.0-16.0); Imm Gran Abs Auto 0.02 X10*3/uL (0.00-0.03); Imm Gran Pct Auto 0.2 % (0.0-0.4); Lymphocytes Absolute Auto 2.3 X10*3/uL (1.2-4.9); Lymphocytes Percent Auto 24.2 % (20-40); Mean Corpuscular HGB Conc 32.9 g/dl (31.0-35.0); Mean Corpuscular Hemoglobin 30.4 pg (27.0-33.0); Mean Corpuscular Volume 92.3 fL (80.0-98.0); Mean Platelet Volume 8.3 fL (9.4-12.3); Monocytes Absolute Auto 0.7 X10*3/uL (0.1-1.2); Monocytes Percent Auto 7.6 % (2-11); Neutrophils Absolute Auto 5.9 x10*3/uL (2.0-8.3); Neutrophils Percent Auto 63.6 % (45-73); Platelet Count 302 X10*3/uL (160-400); Red Blood Count 4.18 X10*6/uL (4.20-5.50); Red Cell Distribution Width 12.6 % (11.0-16.0); White Blood Count 9.3 X10*3/uL (4.8-10.8)
[2023-08-20 09:16] LABS: Appearance Urine Clear; Color Urine Yellow; Glucose Urine UA Negative (Negative); Leukocyte Esterase Urine Negative (Negative); Nitrite Urine Negative (Negative); PH 5.5 (5.0-9.0); Specific Gravity - Urine 1.015 (1.005-1.025); Urine Blood Negative (Negative); Urine Ketones Negative (Negative); Urine Protein Trace mg/dL (Neg-Trace)
[2023-08-20 09:22] LABS: Bacteria Urine Trace (None Seen); Hyaline Casts Urine 0-2 /LPF (0-2); RBC Urine 0-2 /HPF (0-2); WBC Urine 0-5 /HPF (0-5)
[2023-08-20 09:32] LABS: Alanine Aminotransferase 13 U/L (0-31); Albumin Level 4.1 g/dL (3.5-5.0); Alkaline Phosphatase 101 U/L (39-117); Anion Gap 12 (12-20); Aspartate Amino Transferase 13 U/L (5-31); Bilirubin Total 0.5 mg/dL (0.0-1.0); Blood Urea Nitrogen 10 mg/dL (9-16); Calcium 10.1 mg/dL (8.4-10.2); Carbon Dioxide 27 mmol/L (22-29); Chloride 104 mmol/L (96-108); Creatinine Clr Calc Pharmacy 88.5; Estimated Glomerular Filt Rate > 60; Glucose Random 95 mg/dL (60-115); Potassium 3.8 mmol/L (3.3-5.1); Sodium 139 mmol/L (135-145); Total Protein 7.8 g/dL (6.5-8.0)
[2023-08-20 09:36] VITALS: BP 151/97; PULSE 66; RESP 16; TEMP 37.1; O2SAT 98
[2023-08-20] MEDS: Lidocaine 4 % Patch ADH..PATCH 1 PATCH TRANSDERMA (10:15)
[2023-08-20] MEDS: Ketorolac Tromethamine 15 MG/ML VIAL 30 MG IVPUSH (10:15)
--- NOTE | 2023-08-20 10:34 | PC.NURSE ---
22gIV placed in right AC w/o difficulty - medications administered per provider order.
--- NOTE | 2023-08-20 10:43 | PC.NURSE ---
pt to CT.
--- NOTE | 2023-08-20 10:56 | ED_ITS ---
HPI - General Adult General Chief complaint: Abdominal Pain Stated complaint: kidney stone pain Time Seen by Provider: 08/20/23 09:27 Source: patient Mode of arrival: ambulatory Limitations: no limitations History of Present Illness HPI narrative: This is a 48-year-old female presenting with a few days of right-sided flank pain, worse with palpation and certain movements better at rest. Patient reports she can point to where the pain is and it does not move from there. Patient reports associated nausea however no vomiting. She denies urinary/bowel incontinence/retention, vomiting, fevers, chills, chest pain, shortness of breath, headache, vision changes, dizziness and weakness Related Data Previous Rx's Medication Instructions Recorded amlodipine 5 mg tablet 5 mg PO DAILY #30 tabs 08/26/21 hydrochlorothiazide 25 mg tablet 25 mg PO QAM #30 tabs 08/26/21 cyclobenzaprine 10 mg tablet 10 mg PO Q8H Muscular skeletal 02/10/23 pain #14 tabs ibuprofen 600 mg tablet 600 mg PO Q6H PRN fever #14 tabs 02/10/23 ketorolac 10 mg tablet 10 mg PO TID PRN pain 5 days #15 08/20/23 tabs lidocaine 5 % topical patch 1 patch topical DAILY PRN pain #15 08/20/23 ea Allergies Allergy/AdvReac Type Severity Reaction Status Date / Time No Known Allergies Allergy Verified 08/26/21 13:50 Review of Systems 2 Review of Systems: Constitutional : No Weight loss, No Fever, No Chills, No Fatigue, No Malaise ENT/Mouth : No sore throat, No Rhinorrhea Eyes: No Eye Pain, No Swelling, No Redness Cardiovascular : No Chest Pain, No SOB, No Dyspnea on Exertion, No Orthopnea, No Edema, No Palpitations Respiratory : No Cough, No Sputum, No Wheezing Gastrointestinal : No Nausea, No Vomiting, No Diarrhea, No Constipation, No abdominal Pain, No Hematochezia, No Melena Genitourinary : No Dysuria, No Urinary Frequency, No Hematuria, Musculoskeletal : No joint pain, No Myalgias, No Joint Swelling, + right flank pain Skin : No Skin Lesions, No rash Neuro : No Weakness, No Numbness, No Dizziness, No Headache Psych : No Anxiety/Panic, No Depression All other systems reviewed and are negative Yes all other systems are reviewed and are negative [facility] Past Medical History Attestation statement: The following information was validated with the patient. Source: old records reviewed and nursing notes reviewed Social History Social History Alcohol intake: never Smoked in Last 30 Days: No Use of substances other than those prescribed or required for medical reasons: No Advance Directives: No Advance Directives Information Provided: No Patient : No Physical Exam ED Vital Signs: Vital Signs - 24 hr 08/20/23 08:41 08/20/23 09:36 Temperature 97.5 F 98.7 F Pulse Rate 73 66 Respiratory Rate 16 16 Blood Pressure 144/91 H 151/97 H Pulse Oximetry 97 98 Oxygen Delivery Method Room Air Room Air BMI result Body Mass Index 33.6 vss Appearance: Alert.? Oriented X3.? No acute distress.? Head: Normocephalic, atraumatic, no step-offs or deformities Eyes: Pupils equal, round and reactive to light.? ENT: Pharynx normal.? Neck: Normal inspection.? Neck supple.? CVS: Normal heart rate and rhythm.? Pulses normal.? Respiratory: No respiratory distress.? Breath sounds normal.? Abdomen: Soft and nontender.? Skin: Skin warm and dry.? Normal skin color.? Normal skin turgor.? Extremities: No lower extremity edema.? No calf ttp. 5/5 strength to bilateral upper and lower extremities Back: No midline tenderness, no C-spine tenderness, full range of motion, no CVA tenderness bilaterally + TTP to right sided lumbar paraspinous tenderness throughout. + painful rom of back. Ambulatory w/ steady gait norrmal coordinaiton. No saddle paresthesias. Neuro: Oriented X 3.? No motor deficit.? No sensory deficit. CN 2-12 intact Course Reevaluation(s) Reevaluation #1: CBC appears to be within limits. Chemistry unremarkable. UA w/ out infection. CT pending. Time: 11:00 Reevaluation #2: CT scan with no acute intra-abdominal process, mild constipation normal appendix. No radiopaque stones. Patient ambulatory. Improved with pain meds. Educated patient on diagnosis and treatment plan, answered all question, patient verbalizes understanding. At this time patient will be discharged home, advised to return with new or worsening symptoms. Educated on worrisome signs and symptoms and when to return. At this time I feel comfortable discharge home. Time: 11:33 Medications Administered Discontinued Medications Generic Name Dose Route Start Last Admin Trade Name Facundo PRN Reason Stop Dose Admin Ketorolac Tromethamine 30 mg 08/20/23 09:53 08/20/23 10:15 Ketorolac Tromethamine 15 Mg/Ml Vial IVPUSH 08/20/23 09:54 30 mg ONCE ONE Administration Lidocaine 1 patch 08/20/23 09:53 08/20/23 10:15 Lidocaine 4 % Patch Adh..Patch TRANSDERMA 08/20/23 09:54 1 patch ONCE ONE Administration Protocol Medical Decision Making Medical Decision Making [facility] Narrative: 48 yo f presents w/ r flank pain X few days worsening some a/c nausea. + TTP to right sided lumbar paraspinous tenderness throughout. + painful rom of back. Ambulatory w/ steady gait norrmal coordinaiton. No saddle paresthesias. This is likely musculoskeleta pain versus lumbar paraspinous muscle spasm versus lumbago. Unlikely cauda equina, epidural abscess, cord compression. Unlikely metabolic derangements. Unlikely UTI. Plan at this time imaging, Toradol, urine, basic labs. Differential Diagnosis Differential Diagnoses: The differential diagnosis associated with the presentation includes This is likely musculoskeleta pain versus lumbar paraspinous muscle spasm versus lumbago. Unlikely cauda equina, epidural abscess, cord compression. Unlikely metabolic derangements. Unlikely UTI. Admission/Observation Consideration of admission/observation: Escalation of care including admission/observation considered Unlikely Lab Data [facility] Lab Attestation statement: I reviewed the patient's lab results. 08/20/23 09:02 08/20/23 09:02 Labs: Lab Results 08/20/23 Range/Units 09:02 WBC 9.3 (4.8-10.8) X10*3/uL RBC 4.18 L (4.20-5.50) X10*6/uL Hgb 12.7 (12.0-16.0) g/dl Hct 38.6 (37.0-47.0) % MCV 92.3 (80.0-98.0) fL MCH 30.4 (27.0-33.0) pg MCHC 32.9 (31.0-35.0) g/dl RDW 12.6 (11.0-16.0) % Plt Count 302 (160-400) X10*3/uL MPV 8.3 L (9.4-12.3) fL Immature Gran % (Auto) 0.2 (0.0-0.4) % Neut % (Auto) 63.6 (45-73) % Lymph % (Auto) 24.2 (20-40) % [place] % (Auto) 7.6 (2-11) % Eos % (Auto) 3.8 (0-4) % Baso % (Auto) 0.6 (0-2) % Lymph # (Auto) 2.3 (1.2-4.9) X10*3/uL [place] # (Auto) 0.7 (0.1-1.2) X10*3/uL Eos # (Auto) 0.4 (0.0-0.4) X10*3/uL Baso # (Auto) 0.1 (0.0-0.2) X10*3/uL Abs Immat Gran (auto) 0.02 (0.00-0.03) X10*3/uL Absolute Neuts (auto) 5.9 (2.0-8.3) x10*3/uL Absolute Nucleated RBC 0.000 (0.0-0.012) X10*3/uL Nucleated RBC % (auto) 0.0 (0.0-0.2) /100WBC Sodium 139 (135-145) mmol/L Potassium 3.8 (3.3-5.1) mmol/L Chloride 104 (96-108) mmol/L Carbon Dioxide 27 (22-29) mmol/L Anion Gap 12 (12-20) BUN 10 (9-16) mg/dL Creatinine 0.85 (0.5-1.4) mg/dL Estim Creat Clear Calc 88.5 Estimated GFR > 60 Random Glucose 95 (60-115) mg/dL Calcium 10.1 D (8.4-10.2) mg/dL Total Bilirubin 0.5 (0.0-1.0) mg/dL AST 13 (5-31) U/L ALT 13 (0-31) U/L Alkaline Phosphatase 101 (39-117) U/L Total Protein 7.8 (6.5-8.0) g/dL Albumin 4.1 (3.5-5.0) g/dL Urine Color Yellow Urine Appearance Clear Urine pH 5.5 (5.0-9.0) Ur Specific [place] 1.015 (1.005-1.025) Urine Protein Trace (Neg-Trace) mg/dL Urine Glucose (UA) Negative (Negative) mg/dL Urine Ketones Negative (Negative) mg/dL Urine Blood Negative (Negative) Urine Nitrite Negative (Negative) Ur Leukocyte Esterase Negative (Negative) Urine RBC 0-2 (0-2) /HPF Urine WBC 0-5 (0-5) /HPF Ur Squamous Epith Cells 3-5 (0-2) /HPF Urine Bacteria Trace (None Seen) Hyaline Casts 0-2 (0-2) /LPF Independent Interpretation I performed an independent interpretation of an: CT Scan Radiology Impression Discussion of test interpretation with radiology: I have reviewed the radiologist's reading. Prescription Management I considered prescription management with: Pain Medication Critical Care Time Critical Care Time Critical Care Time: No Discharge Plan Discharge Clinical Impression: Lumbar back pain Patient Disposition: Home, Self-Care Instructions: Acute Low Back Pain (ED), Back Pain (ED) Additional Instructions: Take your medications as prescribed. If you were prescribed antibiotics today, it is important that you take your medication to their entirety, do not skip any doses, do not finish them early. Follow-up with your primary care provider this week. Return to the emergency department with new or worsening symptoms. Such as fevers, chills, chest pain, shortness of breath, nausea, vomiting, dizziness, headache, vision changes, lethargy In case of emergency call 911 Toradol has been sent to your pharmacy, you tolerated this well in the department. Please take this as prescribed do not take this with ibuprofen, or other NSAIDs, do not mix this with alcohol. Side effects of this medication including increased risk for bleeding and possible kidney injury. CT/CT abdomen pelvis wo IV con IMPRESSION: 1. No acute intra-abdominal process seen. 2. Mild constipation. Normal appendix. 3. No radiopaque urolith or hydroureteronephrosis. Prescriptions: New ketorolac 10 mg tablet 10 mg PO TID PRN (Reason: pain) 5 Days Qty: 15 0RF lidocaine 5 % adhesive patch,medicated 1 patch topical DAILY PRN (Reason: pain) Qty: 15 0RF Rx Instructions: leave on most painful area for up to 12 hrs No Action hydrochlorothiazide 25 mg tablet 25 mg PO QAM Qty: 30 0RF amlodipine 5 mg tablet 5 mg PO DAILY Qty: 30 0RF ibuprofen 600 mg tablet 600 mg PO Q6H PRN (Reason: fever) Qty: 14 0RF cyclobenzaprine 10 mg tablet 10 mg PO Q8H Qty: 14 0RF Referrals: ED Physician,Generic [Physician] - 2 days Stand Alone Forms: Work/School Release
== END 2023-08-20 11:47 | disposition home or self-care (01) ==
PROVIDERS: Emergency Provider Emergency Medicine; PCP Nurse Practitioner Family
DX: M54.50 Low back pain, unspecified (principal); R10.9 Unspecified abdominal pain; K59.00 Constipation, unspecified
CPT/HCPCS: 36415; 74176; 80053; 81001; 85025; 96374; 99284; J1885